=== PATIENT | male | born 1940 | race Caucasian/White ===

== ENCOUNTER 2018-07-23 17:47 | Observation (INO) | payer MEDICARE, BC ==
[2018-07-23 18:01] LABS: ADD MAN DIFF? NO
[2018-07-23 18:04] LABS: WHITE BLOOD COUNT 5.2 10^3/ul (4.8-10.8)
[2018-07-23 18:04] LABS: BASOPHILS % 0.6 % (0.0-2.0); EOSINOPHILS # 0.2 10^3/ul (0.0-0.5); EOSINOPHILS % 3.9 % (0.0-7.0); HEMATOCRIT 43.8 % (42.0-52.0); HEMOGLOBIN 14.4 g/dl (14.0-18.0); LYMPHOCYTES # 1.8 10^3/ul (0.8-2.9); LYMPHOCYTES % 34.3 % (15.0-51.0); MEAN CORPUSCULAR HEMOGLOBIN 30.5 pg (29.0-33.0); MEAN CORPUSCULAR HGB CONC 32.9 g/dl (32.0-37.0); MEAN CORPUSCULAR VOLUME 92.8 fl (82.0-101.0); MEAN PLATELET VOLUME 9.3 fl (7.4-10.4); MONOCYTE # 0.3 10^3/ul (0.3-0.9); MONOCYTES % 6.4 % (0.0-11.0); NEUTROPHIL # 2.8 10^3/ul (1.6-7.5); NEUTROPHILS % 54.2 % (39.0-77.0); PLATELET COUNT 221 10^3/UL (140-415); RED BLOOD COUNT 4.72 10^6/ul (4.70-6.10); RED CELL DISTRIBUTION WIDTH 12.7 % (11.5-14.5)
[2018-07-23] MEDS: SOD CHLORIDE 0.9% 500 ML IV (18:12)
[2018-07-23 18:26] LABS: ANION GAP 13 (5-13); BLOOD UREA NITROGEN 13 mg/dl (7-20); CALCIUM 8.7 mg/dl (8.4-10.2); CARBON DIOXIDE 22 mmol/L (21-31); CHLORIDE 104 mmol/L (97-110); CREATININE 1.07 mg/dl (0.61-1.24); GLUCOSE 167 mg/dl (70-220); POTASSIUM 3.9 mmol/L (3.5-5.1); SODIUM 139 mmol/L (135-144)
[2018-07-23 18:28] LABS: PROTIME 12.3 Sec (11.9-14.9)
[2018-07-23 18:29] LABS: PARTIAL THROMBOPLASTIN TIME 23.9 Sec (23.0-35.0)
[2018-07-23 18:37] LABS: TROPONIN-I < 0.012 ng/ml (0.000-0.120)
[2018-07-23] MEDS ORDERED: ACETAMINOPHEN 325 MG TAB PO ×2 (20:30→21:30)
[2018-07-23] MEDS ORDERED: ONDANSETRON 4 MG INJ IV ×2 (20:30→21:30)
[2018-07-23] MEDS ORDERED: NACL 0.9% 3 ML SYG IV (21:30)
[2018-07-23] MEDS ORDERED: NON-FORMULARY/PATIENT OWN MED (Esomeprazole Mag Trihydrate (Nexium) 40 MG) PO (21:30)
[2018-07-23] MEDS ORDERED: HYDROCODONE/APAP (5/325) TAB PO ×2 (21:30)
[2018-07-23] MEDS ORDERED: NITROGLYCERIN (SL) 0.4 MG TAB SL (21:30)
[2018-07-23] MEDS ORDERED: ALBUTEROL/IPRATROPIUM (NEB) 3 ML AMP HHN (21:30)
[2018-07-23 22:14] LABS: CREATINE KINASE 57 IU/L (23-200)
[2018-07-23 22:24] LABS: CK-MB 0.58 ng/ml (0.0-2.4)
[2018-07-23 22:28] LABS: TROPONIN-I < 0.012 ng/ml (0.000-0.120)
[2018-07-23] MEDS: ATORVASTATIN 80 MG TAB PO (23:35)
[2018-07-23] MEDS: RANOLAZINE (SR) 500 MG TAB PO (23:35)
[2018-07-24 04:04] LABS: ADD MAN DIFF? NO
[2018-07-24 04:06] LABS: BASOPHILS % 0.5 % (0.0-2.0); EOSINOPHILS # 0.2 10^3/ul (0.0-0.5); HEMATOCRIT 41.1 % (42.0-52.0); HEMOGLOBIN 13.9 g/dl (14.0-18.0); LYMPHOCYTES % 33.5 % (15.0-51.0); MEAN CORPUSCULAR HEMOGLOBIN 30.7 pg (29.0-33.0); MEAN CORPUSCULAR HGB CONC 33.8 g/dl (32.0-37.0); MEAN CORPUSCULAR VOLUME 90.7 fl (82.0-101.0); MONOCYTE # 0.6 10^3/ul (0.3-0.9); MONOCYTES % 9.3 % (0.0-11.0); NEUTROPHIL # 3.2 10^3/ul (1.6-7.5); NEUTROPHILS % 53.2 % (39.0-77.0); PLATELET COUNT 221 10^3/UL (140-415); RED BLOOD COUNT 4.53 10^6/ul (4.70-6.10); RED CELL DISTRIBUTION WIDTH 12.7 % (11.5-14.5)
[2018-07-24 04:18] LABS: HEMOGLOBIN A1C 5.7 % (0-5.9)
[2018-07-24 04:42] LABS: CREATINE KINASE 58 IU/L (23-200)
[2018-07-24 04:46] LABS: ALANINE AMINOTRANSFERASE 38 IU/L (13-69); ALBUMIN 3.6 g/dl (3.3-4.9); ALBUMIN/GLOBULIN RATIO 1.28; ALKALINE PHOSPHATASE 86 IU/L (42-121); ANION GAP 4 (5-13); ASPARTATE AMINO TRANSFERASE 30 IU/L (15-46); BILIRUBIN,INDIRECT 0.3 mg/dl (0-1.1); BILIRUBIN,TOTAL 0.3 mg/dl (0.2-1.3); BLOOD UREA NITROGEN 10 mg/dl (7-20); CALCIUM 8.8 mg/dl (8.4-10.2); CARBON DIOXIDE 27 mmol/L (21-31); CHLORIDE 109 mmol/L (97-110); CHOL/HDL RATIO 2.4 RATIO; CHOLESTEROL 112 mg/dl (100-200); CREATININE 0.94 mg/dl (0.61-1.24); GLUCOSE 97 mg/dl (70-220); HDL CHOLESTEROL 45 mg/dl (31-75); LDL CHOLESTEROL,CALCULATED 47 mg/dl; POTASSIUM 4.3 mmol/L (3.5-5.1); SODIUM 140 mmol/L (135-144); TOTAL PROTEIN 6.4 g/dl (6.1-8.1); TRIGLYCERIDES 102 mg/dl (0-149)
[2018-07-24 04:55] LABS: CK INDEX 0.7; CK-MB 0.42 ng/ml (0.0-2.4); TROPONIN-I < 0.012 ng/ml (0.000-0.120)
[2018-07-24] MEDS ORDERED: RANOLAZINE (SR) 500 MG TAB PO (09:00)
[2018-07-24] MEDS: RANOLAZINE (SR) 500 MG TAB PO (09:03)
[2018-07-24] MEDS: ASPIRIN (EC) 81 MG TAB PO (09:03)
[2018-07-24] MEDS: HEPARIN 5,000 UNIT/1 ML VIAL SC (09:07)
[2018-07-24] MEDS ORDERED: ATORVASTATIN 80 MG TAB PO (21:00)
== END 2018-07-24 16:10 | disposition home or self-care (01) ==
LOC: E/R 17:47 → TEL 20:23
DX: R55 Syncope and collapse (principal); I10 Essential (primary) hypertension; E78.5 Hyperlipidemia, unspecified; I25.10 Atherosclerotic heart disease of native coronary artery without angina pectoris; E66.9 Obesity, unspecified; Z68.30 Body mass index [BMI] 30.0-30.9, adult; Z79.82 Long term (current) use of aspirin; Z95.1 Presence of aortocoronary bypass graft
CPT/HCPCS: 36415; 71045; 80048; 80053; 80061; 82550; 82553; 82962; 83036; 83735; 84484; 85025; 85610; 85730; 93005; 93306; 93880; 96372; 97161; 99285-25; G0378